=== PATIENT | female | born 1955 | race Caucasian/White ===

== ENCOUNTER → 2017-04-14 | Outpatient (CLI) | payer BC ==
[~2017-04-14] MED LIST: ALBUAER INH; ASPEC325 PO; CHOL100010 PO; DICL1GEL28 TOP; EZET10TA63 PO; FLUT0.15 NAE; FRRG PO; GABA-113 PO; MELO7.5T5 PO; MULT-506 PO; OMEG10007 PO; TURM500C PO; [UNRECOGNIZED DRUG - CODE] TOP
--- NOTE | 2017-04-15 14:11 | MAMMOGRAPHY REPORT ---
BILATERAL DIGITAL SCREENING MAMMOGRAM TOMOSYNTHESIS WITH CAD: 04/14/2017 CLINICAL HISTORY: Routine screening. TECHNIQUE: Breast tomosynthesis in addition to standard 2D mammography was performed. Current study was also evaluated with a Computer Aided Detection (CAD) system. COMPARISON: Comparison is made to exams dated: 02/11/2016 mammogram, 02/21/2015 mammogram, 5 mammogram, 12/21/2013 mammogram, 12/20/2012 mammogram, and 12/18/2011 mammogram - [facility]. BREAST COMPOSITION: The tissue of both breasts is heterogeneously dense, which may obscure small mas ses. FINDINGS: There are mild vascular calcifications in the breasts. A few benign rim calcifications in the left breast. A stable intramammary lymph node in the upper outer quadrant of the right breast. No suspicious mass, architectural distortion or cluster of microcalcifications is seen. IMPRESSION: ACR BI-RADS CATEGORY 2: BENIGN There is no mammographic evidence of malignancy. A 1 year screening mammogram is recommended. The pa tient will receive written notification of the results. Approximately 10% of breast cancers are not detected with mammography. A negative mammographic report should not delay biopsy if a clinically suggestive mass is present. Misty Lee M.D. ay/:04/14/2017 15:13:48 Reel Slitter: Luis TARIQ(Sepideh)(M), [facility] letter sent: Normal 1/2 BI-RADS Code: ACR BI-RADS Category 2: Benign
== END | disposition home or self-care (01) ==
LOC: C.MAMM 09:34
PROVIDERS: ATTEND Family Medicine
DX: Z12.31 Encounter for screening mammogram for malignant neoplasm of breast (principal)

== ENCOUNTER 2017-11-25 07:56 | Emergency (ER) | payer BC ==
[~2017-11-25] VITALS: Ht 157.5 cm; Wt 104.1 kg
[2017-11-25 07:59] VITALS: TEMP 36.4; Ht 157.5 cm; Wt 104.1 kg
[2017-11-25 08:05] VITALS: O2SAT 98
[2017-11-25] MEDS ORDERED: ONDANSETRON INJ 2 MG/ML 2 ML VIAL IV STA (08:06)
[2017-11-25] MEDS ORDERED: SODIUM CHLORIDE 0.9% 1000ML 1,000 ML IV STA (08:06)
[2017-11-25] MEDS ORDERED: MECLIZINE HCL 25 MG TAB PO STA (08:06)
[2017-11-25 08:30] LABS: BASO % 0.2 %; BASO ABS # 0.01 K/uL (0-0.2); EOS % 0.7 %; EOS ABS # 0.04 K/uL (0-0.5); HEMATOCRIT 39.9 % (37-47); HEMOGLOBIN 13.8 g/dL (12.0-16.0); IG# 0.04 K/uL (0.00-0.02); LYMPH % 20.7 %; LYMPH ABS # 1.13 K/uL (1.2-3.4); MEAN CELL VOLUME 91.5 fL (80-100); MEAN CORPUSCULAR HEMOGLOBIN 31.7 pg (25-34); MEAN CORPUSCULAR HGB CONC 34.6 g/dl (32-36); MEAN PLATELET VOLUME 9.2 fL (7.4-10.4); MONO % 7.3 %; NEUT % 70.4 %; NEUT ABS # 3.83 K/uL (1.4-6.5); PLATELET COUNT 212 K/uL (130-400); RED CELL DISTRIBUTION WIDTH SD 43.4 fL (36.4-46.3); WHITE BLOOD COUNT 5.45 K/uL (4.8-10.8)
[2017-11-25] MEDS ORDERED: OPTIRAY 320 IV PRN (08:30)
--- NOTE | 2017-11-25 08:35 | DIAGNOSTIC IMAGING REPORT ---
CHEST ONE VIEW PORTABLE CLINICAL HISTORY: CHEST PAIN dyspnea COMPARISON STUDY: 11/28/2015 FINDINGS: Mild stable cardiomegaly. Diaphragms smooth. Lungs are clear. IMPRESSION: No acute process. Mild stable cardiomegaly. The above report was generated using voice recognition software. It may contain grammatical, syntax or spelling errors. Electronically signed by: Ed Pringle M.D. 11/25/2017 8:34 AM Dictated Date/Time: 11/25/2017 8:33 AM
[2017-11-25 08:54] LABS: ALBUMIN 3.7 gm/dl (3.4-5.0); ALKALINE PHOSPHATASE 91 U/L (45-117); ALT/SGPT 34 U/L (12-78); AST/SGOT 21 U/L (15-37); BLOOD UREA NITROGEN 17 mg/dl (7-18); CALCIUM 9.2 mg/dl (8.5-10.1); CARBON DIOXIDE 26 mmol/L (21-32); CREATININE 0.63 mg/dl (0.60-1.20); GLUCOSE 110 mg/dl (70-99); LIPASE 136 U/L (73-393); POTASSIUM 3.7 mmol/L (3.5-5.1); SODIUM 140 mmol/L (136-145); TOTAL PROTEIN 7.3 gm/dl (6.4-8.2)
--- NOTE | 2017-11-25 09:11 | EMERGENCY ROOM VISIT NOTE ---
History Report prepared by Adan: Darrin Stack Under the Supervision of: Dr. Alfredito Brown M.D. First contact with patient: 08:03 Chief Complaint: DIZZY Stated Complaint: DIZZY,SWEATY,FINGERS NUMB History of Present Illness The patient is a 62 year old female who presents to the Emergency Room with complaints of a now-resolved episode of dizziness that occurred this morning, shortly prior to arrival. The patient states that she felt fine this morning while doing her morning back exercises in bed. When she stood up she became dizzy. She describes the dizziness as "the room spinning." The patient also notes that she became diaphoretic. There has not been any recent illnesses or infectious symptoms. She denies experiencing any nausea. The patient adds that she can feel some "numbness and tingling" in her left ring finger. Source of History: patient Onset: Shortly PUBLICITY AGENT Position: head Quality: other (Dizzy) Timing: resolved Associated Symptoms: + numbness (left ring finger. ), No nausea Review of Systems See HPI for pertinent positives and negatives. A total of ten systems were reviewed and were otherwise negative. Past Medical & Surgical Medical Problems: (1) Right Knee DJD Social History Smoking Status: Never Smoker Drug Use: none Marital Status: Housing Status: lives with significant other Occupation Status: retired Current/Historical Medications Scheduled Aspirin (Aspirin Ec), 81 MG PO DAILY Ezetimibe (Zetia), 10 MG PO QPM Fish Oil ([place]-3), 1 CAP PO BID Gabapentin (Neurontin), 600 MG PO TID Multivitamin (Multivitamin), 1 TAB PO QAM Scheduled PRN Fluticasone Propionate (Nasal) (Flonase Allergy Relief), 2 SPRAY SHERON UD PRN for PRN Meclizine Hcl (Meclizine Hcl), 25 MG PO TID PRN for Dizziness Menthol (Topical Analgesic) (Biofreeze), 1 DOSE TOP UD PRN for Pain Allergies Coded Allergies: Lactose Intolerance (GI) (Verified Allergy, Mild, GI UPSET, 11/25/17) Statins (Verified Allergy, Unknown, MUSCLE/JOINT ACHES, 11/25/17) Physical Exam Vital Signs Date Time Temp Pulse Resp B/P (MAP) Pulse Ox O2 Delivery O2 Flow Rate FiO2 11/25/17 10:11 62 18 138/81 98 Room Air 11/25/17 09:05 63 18 149/83 94 Room Air 11/25/17 08:13 65 11/25/17 08:10 67 18 145/76 98 Room Air 11/25/17 08:05 98 Room Air 11/25/17 07:59 36.4 68 18 169/72 98 Room Air Physical Exam GENERAL: Awake, alert, fatigued and uncomfortable-appearing, in no distress HENT: Normocephalic, atraumatic. Oropharynx unremarkable. Mucous membranes are dry. EYES: Normal conjunctiva. Sclera non-icteric.There is mild unilateral horizontal nystagmus to the left. EOMI, PEARRL NECK: Supple. No nuchal rigidity. FROM. No JVD. RESPIRATORY: Clear to auscultation. CARDIAC: Regular rate, normal rhythm. Extremities warm and well perfused. Pulses equal. ABDOMEN: Soft, non-distended. No tenderness to palpation. No rebound or guarding. No masses. RECTAL: Deferred. MUSCULOSKELETAL: Chest examination reveals no tenderness. The back is symmetrical on inspection without obvious abnormality. There is no CVA tenderness to palpation. No joint edema. LOWER EXTREMITIES: Calves are equal size bilaterally and non-tender. No edema. No discoloration. NEURO: Normal sensorium. No sensory or motor deficits noted. Normal cerebellar function with [id number]. SKIN: No rash or jaundice noted. Medical Decision & Procedures ER Provider Diagnostic Interpretation: Radiology results as stated below per my review and radiologist interpretation: CHEST ONE VIEW PORTABLE CLINICAL HISTORY: CHEST PAIN dyspnea COMPARISON STUDY: 11/28/2015 FINDINGS: Mild stable cardiomegaly. Diaphragms smooth. Lungs are clear. IMPRESSION: No acute process. Mild stable cardiomegaly. The above report was generated using voice recognition software. It may contain grammatical, syntax or spelling errors. Electronically signed by: Ed Pringle M.D. 11/25/2017 8:34 AM Dictated Date/Time: 11/25/2017 8:33 AM Laboratory Results 11/25/17 08:20 Red Blood Count 4.36, Mean Corpuscular Volume 91.5, Mean Corpuscular Hemoglobin 31.7, Mean Corpuscular Hemoglobin Concent 34.6, Mean Platelet Volume 9.2, Neutrophils (%) (Auto) 70.4, Lymphocytes (%) (Auto) 20.7, Monocytes (%) (Auto) 7.3, Eosinophils (%) (Auto) 0.7, Basophils (%) (Auto) 0.2, Neutrophils # (Auto) 3.83, Lymphocytes # (Auto) 1.13, Monocytes # (Auto) 0.40, Eosinophils # (Auto) 0.04, Basophils # (Auto) 0.01 11/25/17 08:20 Test 11/25/17 08:20 11/25/17 09:10 White Blood Count 5.45 K/uL (4.8-10.8) Red Blood Count 4.36 M/uL (4.2-5.4) Hemoglobin 13.8 g/dL (12.0-16.0) Hematocrit 39.9 % (37-47) Mean Corpuscular Volume 91.5 fL (80-100) Mean Corpuscular Hemoglobin 31.7 pg (25-34) Mean Corpuscular Hemoglobin Concent 34.6 g/dl (32-36) Platelet Count 212 K/uL (130-400) Mean Platelet Volume 9.2 fL (7.4-10.4) Neutrophils (%) (Auto) 70.4 % Lymphocytes (%) (Auto) 20.7 % Monocytes (%) (Auto) 7.3 % Eosinophils (%) (Auto) 0.7 % Basophils (%) (Auto) 0.2 % Neutrophils # (Auto) 3.83 K/uL (1.4-6.5) Lymphocytes # (Auto) 1.13 K/uL (1.2-3.4) Monocytes # (Auto) 0.40 K/uL (0.11-0.59) Eosinophils # (Auto) 0.04 K/uL (0-0.5) Basophils # (Auto) 0.01 K/uL (0-0.2) RDW Standard Deviation 43.4 fL (36.4-46.3) RDW Coefficient of Variation 13.0 % (11.5-14.5) Immature Granulocyte % (Auto) 0.7 % Immature Granulocyte # (Auto) 0.04 K/uL (0.00-0.02) Anion Gap 7.0 mmol/L (3-11) Est Creatinine Clear Calc Drug Dose 102.1 ml/min Estimated GFR () 109.9 Estimated GFR (Non- 94.8 BUN/Creatinine Ratio 27.0 (10-20) Calcium Level 9.2 mg/dl (8.5-10.1) Magnesium Level 2.1 mg/dl (1.8-2.4) Total Bilirubin 0.4 mg/dl (0.2-1) Direct Bilirubin 0.1 mg/dl (0-0.2) Aspartate Amino Transf (AST/SGOT) 21 U/L (15-37) Alanine Aminotransferase (ALT/SGPT) 34 U/L (12-78) Alkaline Phosphatase 91 U/L (45-117) Troponin I < 0.015 ng/ml (0-0.045) Total Protein 7.3 gm/dl (6.4-8.2) Albumin 3.7 gm/dl (3.4-5.0) Lipase 136 U/L (73-393) Urine Color YELLOW Urine Appearance CLEAR (CLEAR) Urine pH 8.5 (4.5-7.5) Urine Specific [place] 1.011 (1.000-1.030) Urine Protein NEG (NEG) Urine Glucose (UA) NEG (NEG) Urine Ketones NEG (NEG) Urine Occult Blood NEG (NEG) Urine Nitrite NEG (NEG) Urine Bilirubin NEG (NEG) Urine Urobilinogen NEG (NEG) Urine Leukocyte Esterase NEG (NEG) Laboratory results reviewed by me Medications Administered Medications (Trade) Dose Ordered Sig/[place] Route Start Time Stop Time Status Last Admin Dose Admin Sodium Chloride 1,000 ml @ 999 mls/hr Q1H1M STAT IV 11/25/17 08:06 11/25/17 09:06 DC 11/25/17 08:25 999 MLS/HR Meclizine HCl (Antivert Tab) 25 mg NOW STAT PO 11/25/17 08:06 11/25/17 08:14 DC 11/25/17 08:26 25 MG Ondansetron HCl (Zofran Inj) 4 mg NOW STAT IV 11/25/17 08:06 11/25/17 08:14 DC 11/25/17 08:26 4 MG ECG Per My Interpretation Indication: other (Dizzy) Rate (beats per minute): 75 Rhythm: sinus rhythm Findings: PAC, PVC, other (Normal [place], no Acute ishemia) ED Course 0804: The patient was evaluated in room A2. A complete history and physical exam was performed. 0806: Ordered Zofran 4 mg IV, Antivert 25 mg PO, Sodium Chloride 1000 mL @ 999 mL/hr IV. 1010: I reevaluated the patient. Discussed results and discharge instructions: She verbalized understanding and agreement. The patient is ready for discharge. Medical Decision I reviewed the patient's past medical history, medications, and the nursing notes as described above. Differential diagnosis: Etiologies such as benign positional vertigo, dehydration, hypovolemia, anemia, tumor, infection, hypoglycemia, electrolyte abnormalities, cardiac sources, intracerebral event, toxicologic, neurologic, as well as others were entertained. The patient is a 62-year-old woman who presents emergency department with acute onset vertigo that began when attempting to sit up from bed this morning per hpi. Of note, the patient reports she woke up without the symptoms and get her normal back and leg exercises in bed but then became symptomatic upon sitting up. On arrival the patient is fatigued and uncomfortable but no acute distress , afebrile stable vital signs. On exam, the patient has mild unilateral horizontal nystagmus to the left that is worsened when sitting up. Otherwise patient is neuro intact including normal cerebellar function with finger-to- nose. EKG unremarkable. Chest x-ray negative. Labs unremarkable including WBC within normal limits. Chemistry without evidence of acidosis. UA negative. CTA of the head and neck unremarkable. Patient with resolution of symptoms after IV fluids, meclizine. Able to walk to the bathroom without difficulty. Given the patient's symptoms are provoked by position and resolved after treatment in addition to otherwise reassuring neuro exam and workup most likely peripheral at this time. Plan for PCP follow-up. Findings and plan for follow-up reviewed with patient. Patient agreeable and d/c'd per discharge instructions. Medication Reconcilliation Current Medication List: was personally reviewed by me Blood Pressure Screening Patient's blood pressure: Elevated blood pressure Blood pressure disposition: Elevated BP felt to be situational Impression Primary Impression: Vertigo Scribe Attestation The scribe's documentation has been prepared under my direction and personally reviewed by me in its entirety. I confirm that the note above accurately reflects all work, treatment, procedures, and medical decision making performed by me. Departure Information Dispostion Home / Self-Care Prescriptions Meclizine Hcl (MECLIZINE HCL) 25 Mg Tab 25 MG PO TID Y for Dizziness, #21 TAB Prov: Alfredito Brown M.D. 11/25/17 Referrals Essie Echeverria D.O. (PCP) Patient Instructions ED BPV Vertigo, My [facility] Additional Instructions Please follow up with your primary care physician in the next 1-3 days for re- evaluation. Your symptoms are most likely related to peripheral vertigo. Otherwise, your exam, EKG, chest xray, lab results, and CT scan of your head and neck with contrast did not show signs of an emergent condition at this time. Meclizine as needed for vertigo. Drink plenty of fluids to ensure hydration. Return to the emergency department for worsening symptoms as described in the accompanying instructions.
--- NOTE | 2017-11-25 09:32 | DIAGNOSTIC IMAGING REPORT ---
ANGIOGRAPHY HEAD COMBO HISTORY: Mental status change headache TECHNIQUE: Multiaxial CT images of the head were performed both before and after the intravenous administration of contrast to evaluate the major cerebral vessels. Maximum intensity projection images were also obtained. A dose lowering technique was utilized adhering to the principles of ALARA. COMPARISON: None. FINDINGS: There is no mass, hematoma, midline shift, or acute infarct. Visualized intracranial internal carotid arteries, distal vertebral arteries, and basilar artery are widely patent. There is no significant stenosis, occlusion, or aneurysm seen within the bilateral ACAs, MCAs, or credit operations processor. IMPRESSION: No significant stenosis, occlusion, or aneurysm within the [place] of [place]. Normal unenhanced CT of the brain The above report was generated using voice recognition software. It may contain grammatical, syntax or spelling errors. Electronically signed by: Ed Pringle M.D. 11/25/2017 9:31 AM Dictated Date/Time: 11/25/2017 9:29 AM
--- NOTE | 2017-11-25 09:39 | DIAGNOSTIC IMAGING REPORT ---
NECK ANGIO WITH CONTRAST HISTORY: Mental status change headache TECHNIQUE: Multiaxial CT images of the neck were performed following the intravenous administration of contrast to evaluate the major cervical vessels. Maximum intensity projection images were also obtained. All measurements were calculated based on NASCET criteria. A dose lowering technique was utilized adhering to the principles of ALARA. COMPARISON STUDY: None. FINDINGS: The aortic arch and proximal great vessels are widely patent. There is no significant stenosis, occlusion, or dissection identified within the bilateral common carotid, internal carotid, or vertebral arteries. Minimal plaque formation the bifurcations bilaterally. IMPRESSION: No significant stenosis, occlusion, or dissection identified within the carotid or vertebral arteries. Minimal scattered plaque formation. The above report was generated using voice recognition software. It may contain grammatical, syntax or spelling errors. Electronically signed by: Ed Pringle M.D. 11/25/2017 9:38 AM Dictated Date/Time: 11/25/2017 9:31 AM
[2017-11-25] MEDS ORDERED: ASPI81TA28 PO (09:50)
[2017-11-25 10:11] VITALS: BP 138/81; PULSE 62; O2SAT 98
[2017-11-25] MEDS ORDERED: MECL1TAB42 PO (10:22)
== END 2017-11-25 10:40 | disposition home or self-care (01) ==
LOC: C.EDB 07:58 → C.EDA 10:40
DX: R42 Dizziness and giddiness (principal); H55.00 Unspecified nystagmus; Z79.82 Long term (current) use of aspirin; Z88.8 Allergy status to other drugs, medicaments and biological substances; Z91.011 Allergy to milk products

== ENCOUNTER 2023-06-22 11:00 | Observation (INO) ==
--- NOTE | 2023-05-21 15:55 | PAT Medication Instructions ---
Medication Instructions Date of Service May 21, 2023 Home Medications Medication Instructions Recorded meloxicam 15 mg tablet 15 mg PO DAILY PRN pain #30 tabs 03/24/23 meloxicam 15 mg tablet 15 mg PO DAILY PRN pain Black Elderberry 2 tab PO QAM biotin 5,000 mcg chewable tablet 5,000 mcg PO QAM cholecalciferol (vitamin D3) 25 mcg (1,000 unit) capsule (Vitamin D3) 25 mcg PO QAM evolocumab 140 mg/mL subcutaneous pen injector (Repatha SureClick) 140 mg subcut Q14D gabapentin 600 mg tablet 600 mg PO BID yexpwipnnzww-We-lcvr-minerals 18 mg-0.4 mg tablet 1 tab PO QAM omega-3 fatty acids 2 cap PO QAM ASK your surgeon for instructions meloxicam 15 mg tablet 15 mg PO DAILY PRN pain ASK your prescriber and surgeon evolocumab 140 mg/mL subcutaneous pen injector (Repatha SureClick) 140 mg subcut Q14D STOP taking 2 weeks before surgery (or as soon as possible if surgery is within 2 weeks) Black Elderberry 2 tab PO QAM biotin 5,000 mcg chewable tablet 5,000 mcg PO QAM omega-3 fatty acids 2 cap PO QAM DO NOT take the morning of surgery jzalrtmojwct-Rl-obea-minerals 18 mg-0.4 mg tablet 1 tab PO QAM Take morning of surgery With a small sip of water, OTHERWISE NOTHING TO EAT OR DRINK AFTER MIDNIGHT: gabapentin 600 mg tablet 600 mg PO BID Take evening before surgery gabapentin 600 mg tablet 600 mg PO BID Other Notes If you have any questions please call us at [phone] or [phone] or [phone] or [phone]
--- NOTE | 2023-05-28 11:16 | Anesthesiology Consultation ---
Date of Service May 28, 2023 Assessment & Plan (1) Encounter for pre-operative examination: Chart Review Chart Review: Acceptable Risk for Surgery and Patient seen in Pre Admission Testing Pt currently scheduled as 23 hours observation. If surgeon decides to change patient to Same Day Joint, patient would be acceptable risk for TKA, pending patient is motivated, has good support and surgeon's office completes Same Day Joint Program preop requirements. Per PAT appt on 05/28/23, no recent illness/disease exposures, illness related symptoms, or recent illness/disease positive tests. Will leave to surgeon's discretion if preop Covid testing needed Teaching & Discussion Pre-Anesthesia Teaching/Discussion Notes: Instructed NPO after midnight before surgery,except medications with 15 cc of water. Medication instructions provided according to the PAT guidelines. History Surgery Operation Date: 06/22/23 08:50 Proposed Procedures p Left Total Knee Arthroplasty(Left) - Keegan Giles MD Height/Weight Height: 5 ft 3 in Weight: 102.6 kg Allergies Allergy/AdvReac Type Severity Reaction Status Date / Time lactose Allergy Mild GI UPSET Verified 05/20/23 11:15 Ycakcut-ZTE-UvN Reductase Allergy Unknown MUSCLE/JOINT Verified 05/20/23 11:15 Inhibitor ACHES [Tlshwbi-Ngn-Rju Reductase Inhibitor] Medications Home Medications Medication Instructions Recorded Confirmed Last Taken meloxicam 15 mg tablet 15 mg PO DAILY PRN pain #30 tabs 03/24/23 05/20/23 Unknown Black Elderberry 2 tab PO QAM 05/20/23 05/20/23 Unknown biotin 5,000 mcg chewable tablet 5,000 mcg PO QAM 05/20/23 05/20/23 Unknown cholecalciferol (vitamin D3) 25 25 mcg PO QAM 05/20/23 05/20/23 Unknown mcg (1,000 unit) capsule (Vitamin D3) evolocumab 140 mg/mL subcutaneous 140 mg subcut Q14D 05/20/23 05/20/23 Unknown pen injector (Florentino Romeo) gabapentin 600 mg tablet 600 mg PO BID 05/20/23 05/20/23 Unknown ewukeveobswp-Sr-tejh-minerals 18 1 tab PO QAM 05/20/23 05/20/23 Unknown mg-0.4 mg tablet omega-3 fatty acids 2 cap PO QAM 01/24/24 01/24/24 Unknown Past Medical History Medical History Asthma Breathing stable and controlled History of basal cell carcinoma (BCC) History of Mohs micrographic surgery for skin cancer nose Hyperlipidemia Sleep apnea cpap Exercise / Class Metabolic Activity II 4-5 Yardwork/Stairs/Walk up hill (one flight of stairs - no chest pain or SOB ) Past Surgical History Surgical History History of tonsillectomy and adenoidectomy History of total right knee replacement Hx of appendectomy Hx of colonoscopy Hx of wisdom tooth extraction Past Anesthesia History No Hx of Anesthesia Complications and No Family Hx of Anesthesia Complications History of PONV No Hx of PONV and No Hx of Motion Sickness Social History Smoking Status: Never smoker Do You Dip or Chew Tobacco: No Hx Alcohol Use: Yes Alcohol type: wine alcohol intake frequency: a few times a week Hx Substance Use: Yes substance use type: former substance user and marijuana Last Used Substance Other:: years ago Review of Systems Patient denies chest pain, shortness of breath, dyspnea on exertion, reflux, cough, wheezing, palpitations. No hx of seizures, stroke, [place]. No hx of blood clots or blood transfusions Physical Exam Vital Signs VITALS BP 126/76 P 65 TEMP 97.6 SP02 99% RESP 16 Constitutional no acute distress ENMT Mouth: no TMJ clicking Thyromental Distance: < 3.5 Finger Breadths (3.0) Mallampati Class: III Missing molar - left top molar Three permanent bridges on the side Cap to left molar Neck + limited neck extension (mild) Respiratory normal respiratory effort; no respiratory distress Auscultation: lungs clear to auscultation bilaterally; no wheezes Cardiovascular Rate/Rhythm: regular rate and regular rhythm Heart Sounds: no murmur Vessels: no carotid bruit Musculoskeletal Spine: no pain with cervical ROM Extremities: extremities normal to inspection Psychiatric Orientation: alert Lab Results Anesthesia Preop Results Results Anesthesia Widget: WBC 5.86 K/ul (4.8-10.8) 05/28/23 Hgb 13.0 g/dl (12.0-16.0) 05/28/23 Hct 40.3 % (37.0-47.0) 05/28/23 Plt 253 K/uL (130-400) 05/28/23 Na 141 mmol/L (136-145) 05/28/23 K 3.7 mmol/L (3.5-5.1) 05/28/23 Cl 105 mmol/L (98-107) 05/28/23 CO2 29 mmol/L (21-32) 05/28/23 BUN 15 mg/dl (6-23) 05/28/23 Creat 0.55 mg/dl (0.6-1.2) L 05/28/23 Glucose Level 82 mg/dl (70-99(Fasting)) 05/28/23 PT 10.2 Seconds (9.0-12.0) 05/28/23 PTT 31 Seconds (21-31) 05/28/23 INR 0.9 (0.9-1.1) 05/28/23 Blood Type O Negative 05/28/23 Antibody Screen NEGATIVE 05/28/23 Testing Electrocardiogram Date: 05/28/23 Findings: + NSR @ (66bpm) Normal EKG per cardio Chest X-Ray Date: 05/28/23 FINDINGS: No pneumothorax. No pleural effusions. The cardiac silhouette remains mildly enlarged. No new focal lung consolidations to suggest a pneumonia. No evidence for pulmonary edema. A few small linear densities within the lingula and right middle lobe favor scarring or subsegmental atelectasis. No fractures identified. IMPRESSION: No significant change compared to the prior study. No acute process. Stable mild cardiomegaly.
--- NOTE | 2023-06-20 10:31 | History & Physical Report ---
Date of Service June 20, 2023 Assessment & Plan (1) Arthritis of knee, left: 68-year-old female status post a right knee replacement in the past with advanced left knee DJD. She failed conservative treatment. She is ready to have her left knee fixed. Plan will take to the operating do left total knee replacement for the risks Mente this procedure were explained to the patient and include but not limited to DVT PE infection neurological and vascular bleeding palm pain limb range of motion this is fairly her symptoms incomplete relief of symptoms excetra. Patient understands and desires to proceed. Informed consent is obtained. She is planned to stay in the hospital overnight and hopeful discharge postop day 1. Home health program. DVT prophylaxis will be thigh-high teds, SCDs, aspirin twice a day. (2) History of total right knee replacement: History of Present Illness Chief Complaint: . Persistent, progressive left knee pain and discomfort. Primary Care Provider: Essie Echeverria DO . Patient is a 68-year-old female with a history of right knee replacement done about 7 years ago with persistent left knee pain discomfort. She been through extensive conservative treatment over the years provided by multiple providers. She has had injections which become less successful over time. She cannot walk any significant distance. Pains become more disabling. She has difficulty going up and down stairs. Is global pain. She is happy with her right knee would like to have her left knee replaced. Allergies Allergy/AdvReac Type Severity Reaction Status Date / Time lactose Allergy Mild GI UPSET Verified 05/20/23 11:15 Svfdigq-ZZK-CiQ Reductase Allergy Unknown MUSCLE/JOINT Verified 05/20/23 11:15 Inhibitor ACHES [Uawqybl-Bmf-Etn Reductase Inhibitor] Home Medications Medication Instructions Recorded Confirmed Type meloxicam 15 mg tablet 15 mg PO DAILY PRN pain #30 tabs 03/24/23 05/20/23 Rx Black Elderberry 2 tab PO QAM 05/20/23 05/20/23 History biotin 5,000 mcg chewable tablet 5,000 mcg PO QAM 05/20/23 05/20/23 History cholecalciferol (vitamin D3) 25 25 mcg PO QAM 05/20/23 05/20/23 History mcg (1,000 unit) capsule (Vitamin D3) evolocumab 140 mg/mL subcutaneous 140 mg subcut Q14D 05/20/23 05/20/23 History pen injector (Repatha SureClick) gabapentin 600 mg tablet 600 mg PO BID 05/20/23 05/20/23 History vzzktvgbohsf-Mp-yjog-minerals 18 1 tab PO QAM 05/20/23 05/20/23 History mg-0.4 mg tablet omega-3 fatty acids 2 cap PO QAM 05/20/23 05/20/23 History acetaminophen 500 mg tablet 1,000 mg (2 x 500 mg) PO TID pain 06/20/23 Rx (Tylenol Extra Strength) 30 days #180 tabs aspirin 81 mg tablet,delayed 81 mg PO BID 45 days #90 tabs 06/20/23 Rx release (Marylin Low Dose Aspirin) cefadroxil 500 mg capsule 500 mg PO BID 7 days #14 caps 06/20/23 Rx ketorolac 10 mg tablet 10 mg PO Q6 pain 5 days #20 tabs 06/20/23 Rx ondansetron 4 mg disintegrating 4 mg PO Q8 PRN nausea #20 tabs 06/20/23 Rx tablet oxycodone 5 mg tablet 5 - 10 mg (1 - 2 x 5 mg) PO Q6 PRN 06/20/23 Rx pain #40 tabs sennosides 8.6 mg tablet (Senokot) 8.6 mg PO BID prevent constipation 06/20/23 Rx 14 days #28 tabs Past Med/Surg History Medical History History of Mohs micrographic surgery for skin cancer nose History of basal cell carcinoma (BCC) Sleep apnea cpap Asthma Breathing stable and controlled Hyperlipidemia Surgical History History of total right knee replacement Hx of appendectomy Hx of colonoscopy History of tonsillectomy and adenoidectomy Hx of wisdom tooth extraction Social History Smoking Status: Never smoker Second Hand Exposure: Yes (hx as child); Do You Dip or Chew Tobacco: No; Tobacco Cessation Education Requested by Patient: No Hx Alcohol Use: Yes Alcohol type: wine Hx Substance Use: Yes Last Used Substance Other:: years ago Preferred Language: Indonesian Communication Ability: Effective Technical Laboratory Asst Required: No Beliefs That Will Affect Care: None Current Living Situation: Spouse Other Information That Helps Us Care for You: No Feels Safe at Home: Yes Safety Concerns: Feels Safe At This Time Assistive Devices: Contacts and Glasses Review of Systems All systems reviewed & are unremarkable except as noted in HPI & below. Physical Exam . Physical examination reveals a pleasant middle-age female. Looks pretty good health. Examination of the left knee reveals patient ambulates with a bit of a limp is got varus alignment to her knee with a varus thrust with weightbearing. Moderate soft tissue envelope. Range of motion 5-1 20. No instability. No pain with hip motion. Examination of the right knee reveals a well-healed incision. Got anatomic al ignment to the knee. Range of motion 0-1 20. Good stability. Negative straight leg raise. No pain with hip motion. Constitutional WD/WN, vitals as above Neck trachea midline, no thyromegaly Respiratory normal respiratory effort, lungs clear to auscultation Cardiovascular RRR, no murmur, no edema Gastrointestinal (Abdomen) normal bowel sounds, soft, nontender, no hepatosplenomegaly Results & Data Results & Data Laboratory Results . Diagnostic Findings . X-rays of the left knee reviewed. Shows advanced left knee DJD. She got complete loss of medial joint space. She got varus deformity to her knee. She got subchondral sclerosis with osteophytes medially. The right knee replaced looks to be good position without problems. PG Care Time/CCT Total # of Minutes Spent Total Time Spent with Patient: Total time spent is greater than 50% in coordination of care (as documented) at patient's floor/unit and/or counseling patient: Coding Level of Care Code None Diagnoses Arthritis of knee, left M17.12 History of total right knee replacement Z96.651
[~2023-06-22 11:00] MED LIST changes: -ALBUAER INH; -ASPEC325 PO; +BUPIVACAINE 0.5 % 5 MG/1 ML PF 10ML VIAL ONE; -CHOL100010 PO; +DEXAMETHASONE SOD INJ 4 MG/ML VIAL ONE; -DICL1GEL28 TOP; -EZET10TA63 PO; -FLUT0.15 NAE; -FRRG PO; -GABA-113 PO; -MELO7.5T5 PO; -MULT-506 PO; -OMEG10007 PO; +ROPIVACAINE 0.5% 5 MG/ML 30 ML VIAL ONE; -TURM500C PO; -[UNRECOGNIZED DRUG - CODE] TOP
[2023-06-22] MEDS: LR 500ML BOLUS, THEN 15ML/HR IV SCH (11:37)
[2023-06-22] MEDS: METOCLOPRAMIDE HCL 10 MG TABLET PO SCH (11:38)
[2023-06-22] MEDS: ACETAMINOPHEN 500 MG TAB PO SCH ×2 (11:41→19:30)
[2023-06-22] MEDS: FAMOTIDINE 20 MG TAB PO SCH (11:41)
[2023-06-22] MEDS: CeleBREX 200 MG CAP PO SCH (11:41)
[2023-06-22] MEDS: dexAMETHasone**PF** 10 MG/ML VIAL IV SCH (11:42)
[2023-06-22] MEDS ORDERED: ONDANSETRON INJ 2 MG/ML 2 ML VIAL ONE (12:01)
[2023-06-22] MEDS ORDERED: fentaNYL citrate PF 100 MCG/2 ML VIAL ONE (12:03)
--- NOTE | 2023-06-22 12:36 | History & Physical Bridge Note ---
Date of Service June 22, 2023 History & Physical Bridge Note I have examined the patient, reviewed the History & Physical and in the interval since the performance of the History & Physical I have noted the following changes of clinical significance: no changes noted
[2023-06-22] MEDS: ceFAZolin 2000MG 2,000 MG/15 ML SYR IV SCH ×2 (13:13→20:17)
[2023-06-22] MEDS: LR 60ML/HR IV SCH (13:24)
[2023-06-22] MEDS: ORTHO JOINT ANESTHETIC ONE (13:57)
[2023-06-22] MEDS ORDERED: ePHEDrine sulfate 50 MG/ML AMP ONE ×2 (13:58)
[2023-06-22] MEDS ORDERED: PROPOFOL IV EMULSION 10 MG/ML 100 ML VIAL IV ONE (13:59)
[2023-06-22] MEDS: TRANEXAMIC ACID 1,000 MG **IV Intra-op IV SCH (14:18)
[2023-06-22] MEDS: ROPIV 0.5% 246mg, Ketorolac 30mg, EPINEPHrine 0.5mg in NSS INFIL SCH (14:41)
--- NOTE | 2023-06-22 15:00 | Operative Report ---
PG Post Operative Report Pre & Post Diagnosis Operation Date: 06/22/23 12:30 Pre-Op Diagnosis: Left Knee Degenerative Joint Disease Post-Op Diagnosis: Left Knee Degenerative Joint Disease I identified the patient and participated in the time-out.: Yes Procedure Operation Date: 06/22/23 12:30 Actual Procedures p Left Total Knee Arthroplasty(Left) - Keegan Giles MD Surgeon Keegan Giles MD Vertical Mill Operator Jamari Ramirez PA-C Estimated Blood Loss 50 Findings Consistent with Post-Op Diagnosis Operative findings revealed extensive left knee tricompartment DJD with grade 4 [id number]-wx-[id number] disease most severe in the medial side of the knee. She had osteophytes in all 3 compartments. She had a fixed varus deformity to her knee. Moderate-sized joint effusion. Moderate to large soft tissue envelope. Specimens Left knee sent for pathology Anesthesia Type Spinal MAC Complications none Disposition Accompanied Patient To Recovery: No Indications Patient is a 68-year-old female is had a long history of knee pain and discomfort. Worse over the years. She had a right knee replaced about 7 years ago and is done well with this. She came more debilitated by her left knee pain. Symptom extensive conservative treatments became less successful over time. She elected proceed with left total knee arthroplasty. Description of Procedure Operative implants consist of: 1 Biomet Vanguard size 67.5 left posterior stabilized femoral component. 2. Biomet size 75 tibial tray. 3. 12 mm posterior stabilized polyethylene insert. 4. 31 x 8 all poly patella. The patient was taken the operating, identified, placed on the operating table in the supine position. All contact areas were appropriately padded. IV antibiotics tried by anesthesia team. A spinal anesthetic and abductor canal block had been provided in the holding area. Mosher catheter was placed in sterile fashion. A left thigh turn was then placed in the left lower extremities and prepped and draped in usual sterile fashion. The left leg was elevated and exsanguinated with use of an Esmarch and a turn was placed at 300 mmHg. An anterior approach to the left knee was then performed to longitudinal incision centered over the patella. Sharp dissection was carried through subcutaneous tissue down the extensor mechanism. A medial parapatellar arthrotomy incision was made. Some subperiosteal dissection was carried out medially. The fat pad was resected from Neath patella tendon. Lateral patellofemoral ligament was released. Patella subluxated laterally and the knee was flexed. The osteophytes taken off distal femur. The ACL and PCL were then released from distal femur and the tibia subluxated anteriorly. The external tibial alignment jig was then placed on the anterior face of the tibia and adjusted 14 mm medially. Proximal tibial cut was made essentially flush with the most deficient aspect the medial tibial plateau. She had quite a bit of medial wear. Some osteophytes were taken off medially. The tibia was sized to a size 75. Attention drawn the femur. The distal femur stem with a sharp drill. Intramedullary canal was suction. A left 5 degree valgus cutting guide was placed and the distal femoral cutting block was pinned in place. Distal femoral cut was made to take an additional 3 mm of bone off distal femur. The femur was then sized to a size 67.5. The AP cutting block was pinned parallel to the epicondylar axis which was 5 degrees of external rotation. The anterior cut, anterior chamfer, posterior cut, posterior chamfer cuts were made. The box cutting guide was placed in the just slight lateral and the box cut was made. The knee was flexed. The remnants of the medial and lateral menisci were excised. The osteophytes taken off the poste rior aspect the femur. A trial femoral component was placed. The tibial tray was pinned Karmen external rotation and the drill and stem punch used to create defect in proximal tibia for the tibial tray. The knee was then trialed and the 12 mm insert fit most appropriately. Attention drawn the patella. The patella was cleaned of all soft tissues. Patella thickness measured 20 mm in thickness was cut down to 14. Was sized to a size 31 patella. The locals were drilled for 31 patella. The lateral osteophytes removed. Patella button was placed. Knee was taken through range of motion and the patella tracked nicely with no thumbs test. Attention drawn to placing the permanent components. All trial components were removed. Bone plug was placed in the distal femur limit blood loss. A double batch Palacos G cement was mixed. [email or web address] Applicationguard size 67.5 left posterior by femoral component, a size 75 tibial tray, 12 mm post stabilized polyethylene insert, and a 31 x 8 all poly patella then cemented in place. The knee was brought out into full extension till cement hardened. Final cement check was then performed. The pericapsular tissues were injected with 100 cc of Ortho joint mix. The tourniquet was then let down for final tourniquet time of 56 minutes. Hemostasis assured use electrocautery. Extensor Metros then closed with combination 1 PDS suture #1 Vicryl suture in hglgnu-wo-kchum fashion. Extensor Meclomen checked to be intact and subcutaneous tissues then closed with 2 Dexon suture in a buried interrupted fashion the skin was closed skin kash. Leg was then cleaned and dried and sterile dressed with Xeroform, 4 fours, sterile cast padding, with Mati bandage were applied. Patient then transferred to the recovery room in stable condition. Patient tolerated procedure well and there were no complications. Jamari Ramirez, my physician equal opportunity assistant, was present for the entire procedure. His assistance was essential and required for appropriate patient positioning, prepping and draping, surgical exposure, performing the technical details of the operation, placement the implants, closure of the wound, and placement of the sterile bandage. I attest to the content of the Intraoperative Record and any orders documented therein. Any exceptions are noted below.
--- NOTE | 2023-06-22 15:21 | XRay Report ---
XR knee LT 1 or 2V routine CLINICAL HISTORY: Postoperative evaluation. COMPARISON: Left knee radiographs April 17, 2023. FINDINGS: Alignment of the total left knee arthroplasty is anatomic. There is no periprosthetic frac ture or unexpected radiopaque foreign body. There are skin kash. IMPRESSION: Expected findings following total left knee arthroplasty. ACT 112: Negative or not required by law. Electronically signed by: Misha Tong M.D. 06/22/2023 3:20 PM
[2023-06-22] MEDS ORDERED: ONDANSETRON INJ 2 MG/ML 2 ML VIAL IV PRN (16:51)
[2023-06-22] MEDS ORDERED: oxyCODONE HCL IR 5 MG TAB (IMMEDIATE RELEASE) PO PRN (16:51)
[2023-06-22] MEDS ORDERED: bisacodyL 10 MG SUPP PR PRN (16:51)
[2023-06-22] MEDS ORDERED: HYDROmorphone INJ 0.5 MG/0.5 ML SYR IV PRN (16:51)
[2023-06-22] MEDS ORDERED: ALUMINUM/MAGNESIUM SUSP 30 ML UDC PO PRN (16:51)
[2023-06-22] MEDS ORDERED: NON-FORMULARY MEDICATION (Evolocumab [Repatha Sureclick] 140 mg/mL Pen Injector) SQ SCH (16:51)
[2023-06-22] MEDS ORDERED: MAGNESIUM HYDROXIDE SUSP 30 ML UDC PO PRN (16:51)
[2023-06-22] MEDS ORDERED: NALOXONE HCL 0.4 MG/1 ML VIAL/CARP IV PRN (16:51)
[2023-06-22] MEDS ORDERED: METOCLOPRAMIDE HCL INJ 5 MG/ML 2 ML VIAL IV PRN (16:51)
[2023-06-22] MEDS: SODIUM CHLORIDE 0.9% 1,000 ML IV SCH (17:11)
[2023-06-22] MEDS: KETOROLAC TROMETHAMINE 15 MG/ML VIAL IV SCH (17:43)
[2023-06-22] MEDS: ASCORBIC ACID 500 MG TAB PO SCH (17:43)
--- NOTE | 2023-06-22 18:02 | Anesthesiology Progress Note ---
Date of Service June 22, 2023 Anesthesia Post Procedure Vital Signs Vital Signs: Temp Pulse Pulse Resp BP BP Pulse Ox 06/22/23 17:35 36.7 C 88 16 125/74 96 06/22/23 17:07 36.5 C 86 16 118/72 95 06/22/23 16:35 36.8 C 96 H 16 124/73 96 06/22/23 16:10 94 H 20 121/60 95 06/22/23 16:00 36.5 C 96 H 12 116/74 95 06/22/23 15:50 90 14 120/57 L 95 06/22/23 15:40 92 H 20 127/67 96 06/22/23 15:30 92 H 12 125/60 95 06/22/23 15:20 91 H 14 120/66 93 06/22/23 15:10 97 H 16 120/63 92 06/22/23 15:02 36.4 C L 100 H 18 129/60 93 06/22/23 11:50 37.1 C 85 17 177/84 H 95 O2 Del Method O2 Flow Rate 06/22/23 17:35 Nasal Cannula 1.5 06/22/23 17:07 Nasal Cannula 2 06/22/23 16:35 Nasal Cannula 2 06/22/23 16:10 Nasal Cannula 2 06/22/23 16:00 Nasal Cannula 2 06/22/23 15:50 Nasal Cannula 2 06/22/23 15:40 Nasal Cannula 2 06/22/23 15:30 Nasal Cannula 2 06/22/23 15:20 Room Air 06/22/23 15:10 Room Air 06/22/23 15:02 Room Air 06/22/23 11:50 Room Air Transfer of Care Handoff Completed per policy Notes Mental Status: alert / awake / arousable Patient Amnestic to Procedure: Yes Nausea / Vomiting: adequately controlled Pain: adequately controlled Airway Patency, RR, SpO2: stable & adequate BP & HR: stable & adequate Hydration State: stable & adequate Neuraxial Anesthesia: was administered and sensory block is resolving Anesthetic Complications: no major complications apparent and Pt Satisfied with anesthetic care
[2023-06-22] MEDS: ASPIRIN 81 MG ECTAB PO SCH (19:32)
[2023-06-22] MEDS: GABAPENTIN 600 MG TAB PO SCH (19:33)
[2023-06-22] MEDS: SENNA 8.6 MG TAB PO SCH (19:33)
[2023-06-22] MEDS: DOCUSATE SODIUM 100 MG CAP PO SCH (19:33)
[2023-06-22] MEDS: TRANEXAMIC ACID / 0.7% NACL 1,000 MG/100 ML BAG IV SCH (20:17)
[2023-06-22] MEDS ORDERED: SENNA 8.6 MG TAB PO SCH (21:00)
[2023-06-23 07:19] LABS: Hematocrit (blood only) 33.7 % (37.0-47.0); Hemoglobin 11.7 g/dl (12.0-16.0); Mean Corpuscular Hemoglobin 31.8 pg (25.0-34.0); Mean Corpuscular Hgb Conc 34.7 g/dL (32.0-36.0); Mean Corpuscular Volume 91.6 fL (80.0-100.0); Platelet Count 240 K/uL (130-400); RDW Standard Deviation 40.7 fL (36.4-46.3); Red Blood Count 3.68 M/uL (4.20-5.40); White Blood Count 11.15 K/ul (4.8-10.8)
[2023-06-23 07:30] LABS: BUN Creatinine Ratio 30.4 (10-20); Calcium 9.2 mg/dl (8.6-10.3); Creatinine Clr Calc Pharmacy 104.4 ml/min; Est GFR (African American) 109.5 ml/min; Est GFR (Non-African American) 94.5 ml/min; Potassium 4.2 mmol/L (3.5-5.1)
[2023-06-23] MEDS: MULTIVITAMIN TAB PO SCH (07:51)
[2023-06-23] MEDS: OMEGA-3 (PURIFIED FISH OIL) 1 GM CAP PO SCH (07:51)
[2023-06-23] MEDS: CHOLECALCIFEROL 25 MCG (1000 UNITS) TAB PO SCH (07:51)
[2023-06-23] MEDS: dexAMETHasone 10 MG in SYRINGE 0 ML IV SCH (07:52)
[2023-06-23] MEDS ORDERED: MULTIVITAMIN CA IRON MINERALS PO SCH (09:00)
[2023-06-23] MEDS ORDERED: BLACK ELDERBERRY PO SCH (09:00)
[2023-06-23] MEDS ORDERED: NON-FORMULARY MEDICATION (Biotin 5,000 mcg Tablet,Chewable) PO SCH (09:00)
--- NOTE | 2023-06-23 17:26 | Surgery Progress Note ---
Date of Service June 23, 2023 Assessment & Plan (1) Status post left knee replacement: Plan: 68-year-old female postop day 1 from left knee replacement doing well. Pain is controlled. She is neurologically intact. Hoping to go home today. Plan: 1. DVT prophylaxis including thigh-high teds, SCDs, aspirin twice a day. 2. PT/OT. Weight-bear as tolerated. Left total knee protocol. 3. Pain control doing okay with current pain regimen. 4. Disposition plan to discharge to home with home health she does okay in therapy today Admission and Anticipated Discharge Date Admission Date: June 22, 2023 Subjective 68-year-old female postop day 1 from a knee replacement. She is doing pretty well had a pretty good night. Pain was manageable. No chest pain or shortness of breath. She is hoping to go home today. Physical Exam Physical Exam: Physical examination is a pleasant middle-aged female. Sitting up in bedside chair when I visited this morning. Examination of the leg reveals a dressing clean dry and intact patient can dorsiflex and plantarflex her foot appropriately. She can do is good straight leg raise. She is neurologically intact. Respiratory: normal respiratory effort, lungs clear to auscultation Cardiovascular: RRR, no murmur, no edema Gastrointestinal (Abdomen): normal bowel sounds, soft, nontender, no hepatosplenomegaly Results & Data Vital Signs (Past 12 Hours) Vital Signs Temp Pulse Pulse Resp BP BP Pulse Ox 06/23/23 10:48 36.6 C 86 64 16 118/68 108/67 95 06/23/23 07:11 06/23/23 07:03 36.6 C 64 16 118/68 95 O2 Del Method 06/23/23 10:48 06/23/23 07:11 Room Air, CPAP 06/23/23 07:03 Room Air Laboratory Results Hemoglobin is 11.7. Hematocrit is 33.7. Electrolytes are stable. PG Care Time/CCT Total # of Minutes Spent Total Time Spent with Patient: Total time spent is greater than 50% in coordination of care (as documented) at patient's floor/unit and/or counseling patient: Coding Level of Care Code 23888 Post Operative Follow-Up Diagnoses Status post left knee replacement Z96.652
--- NOTE | 2023-06-25 08:13 | Discharge Summary ---
Date of Service June 25, 2023 Discharge Data Procedures Performed Operation Date: 06/22/23 12:30 Actual Procedures p Left Total Knee Arthroplasty(Left) - Keegan Giles MD Hospital Course (1) Status post left knee replacement: This is a 68 year old patient admitted on 06/22/23 and underwent total knee arthroplasty. She tolerated the procedure well and there were no complications. Transferred to the PACU post op and later to the orthopedic floor for further care. She was given ancef for antibiotic prophylaxis. She was also given SIOMARA stockings, SCDs, and aspirin for DVT prophylaxis. Hemoglobin, hematocrit, and vital signs were monitored during her hospital stay and remained stable. Did not require any blood transfusions. There were no complications during her hospital stay. By post op day #1 the patient was tolerating a regular diet, pain was reasonably controlled with oral pain medicine, and she was participating in physical therapy. On post op day #1 the patient was discharged home and set up with home health care. She was given printed discharge instructions including prescriptions for extra strength tylenol, aspirin, cefadroxil, ketorolac, zofran, senokot, and oxycodone. Continue physical therapy, weight bearing as tolerated. Continue SIOMARA stockings. Follow up approximately 2 weeks post op or sooner if there are problems or concerns. Coding Level of Care Code None Diagnoses Status post left knee replacement Z96.652
== END 2023-06-23 11:28 | disposition home health service (06) ==
LOC: 3E 11:00 → ASU 11:00